=== PATIENT | female | born 1970 | race Caucasian/White ===

== ENCOUNTER 2023-09-08 19:52 | Emergency (ER) | payer OTHER, SELFPAY ==
--- NOTE | 2023-09-08 19:54 | ED.EYEPROB ---
HPI - Eye Problem General Chief complaint: Eye Problems Stated complaint: eyes itching,burning,running Time Seen by Provider: 09/08/23 19:53 Source: patient Mode of arrival: ambulatory Limitations: no limitations History of Present Illness HPI Narrative: Pauly is a 52-year-old female patient presenting to the clinic today with complaints of burning, itching, and watery eyes for the past few days. Has been trying to use her eye ointment from having ocular rosacea-neomycin/dexamethasone and this ointment was not helping. She tried an fqtp-mtc-flloric antibiotic drop and states she got minor relief from that however she is still having burning, itching and watering eyes. Does take a daily allergy pill. She denies any URI symptoms. Related Data Home Medications Medication Instructions Recorded Confirmed dextroamphetamine-amphetamine 20 20 mg PO BID 09/08/23 09/08/23 mg tablet fluoxetine 20 mg capsule See Rx Instructions .Route .COMPLEX 09/08/23 09/08/23 minoxidil 2.5 mg tablet 2.5 mg PO DAILY 09/08/23 09/08/23 neomycin 3.5 mg/g-polymyxin B See Rx Instructions .Route .COMPLEX 09/08/23 09/08/23 10,000 unit/g-dexameth 0.1 % eye oint rosuvastatin 10 mg tablet 10 mg PO DAILY 09/08/23 09/08/23 triamcinolone acetonide 0.1 % See Rx Instructions .Route .COMPLEX 09/08/23 09/08/23 topical cream Allergies Allergy/AdvReac Type Severity Reaction Status Date / Time No Known Allergies Allergy Verified 09/08/23 20:05 Review of Systems Review of Systems: Pertinent positives per HPI. Patient denies any fever, chills, rash, headache, visual changes, dizziness, cough, runny nose, sore throat, shortness of breath, chest pain, palpitations, nausea, vomiting, diarrhea, constipation, abdominal pain, or any urinary issues. PMFSH Comments At the time of my signature, I reviewed and agree with the nursing past medical, surgical, social, and family history. There is no relevant family history pertinent to the patient complaint. Exam Narrative: General: Well-developed, well nourished, in no apparent distress Head: Normocephalic, atraumatic Eyes: Pupils equally round and reactive to light bilaterally, EOM intact, sclera and conjunctive injected, clear watery discharge, lids mildly swollen Ears: TMs intact and clear, ear canals clear, no drainage, grossly hearing normal. Nose: Nares patent, no discharge, no inflammation, no sinus tenderness. Mouth: Oropharynx without lesions or masses, good dentition, MMM. Neck: Supple, trachea midline, no enlargement of anterior or posterior cervical nodes, no thyroid masses or goiter palpable. Cardio: Regular rate and rhythm, s1 and s2 normal, no murmur appreciated. Resp: Clear to auscultation bilaterally anteriorly and posteriorly, no rhonchi, rales, wheezing or rubs Course Course Emergency Course: Portions of this record may have been created with voice recognition software. Level of Care: Express Care Visit Vital Signs Vital signs: Vital Signs Temperature 36.3 C L 09/08/23 20:02 Pulse Rate 90 09/08/23 20:02 Respiratory Rate 18 09/08/23 20:02 Blood Pressure 148/96 H 09/08/23 20:02 Pulse Oximetry 98 09/08/23 20:02 Oxygen Delivery Room Air 09/08/23 20:02 Temperature 36.3 C L 09/08/23 20:02 Pulse Rate 90 09/08/23 20:02 Respiratory Rate 18 09/08/23 20:02 Blood Pressure 148/96 H 09/08/23 20:02 Pulse Oximetry 98 09/08/23 20:02 Oxygen Delivery Room Air 09/08/23 20:02 Vital signs reviewed MDM - Eye Problem MDM Narrative Medical decision making narrative: At the time of visit patient is resting comfortably on the exam table. Patient appears to be nontoxic. Supportive measures were discussed with the patient and they voiced understanding discharge instructions and agrees to treatment plan. Return precautions reviewed Discharge Plan Discharge Clinical Impression: Acute allergic conjunctivitis Qualifiers: Laterality: bilateral Q
[2023-09-08 20:02] VITALS: BP 148/96; PULSE 90; RESP 18; TEMP 36.3; O2SAT 98
== END 2023-09-08 20:14 | disposition home or self-care (01) ==
LOC: EXPCOLL 19:57
PROVIDERS: Emergency Provider Nurse Practitioner Family
DX: H10.13 Acute atopic conjunctivitis, bilateral (principal); E78.00 Pure hypercholesterolemia, unspecified
CPT/HCPCS: 99203; G0463